=== PATIENT | male | born 1975 | race Caucasian/White ===

== ENCOUNTER 2019-10-07 13:22 | Emergency (ER) | payer SELFPAY ==
[~2019-10-07] VITALS: Ht 167.6 cm; Wt 65.8 kg
[2019-10-07 13:32] VITALS: BP 154/98
[2019-10-07] MEDS ORDERED: HYDROcodone/APAP 5/325 MG 1 TAB TAB PO ONE (14:05)
--- NOTE | 2019-10-07 14:12 | NUR ---
C/O LEFT THUMB NAIL PAIN S/P SMASHING SITE IN CAR DOOR X YESTERDAY. BRUISING NOTED UNDER PTS L THUMB NAIL. +CMS. PAIN /. VS STABLE. PT ALERT AND AWAKE, AMBULATORY WITH STEADY GAIT. MED HX: DENIES
--- NOTE | 2019-10-07 14:13 | NUR ---
[facility] PO ADMINISTERED. PT STATES HE HAS A RIDE HOME
--- NOTE | 2019-10-07 14:28 | NUR ---
[facility] in ED - 10/07/19 at 1445 by [email or web address] XRAY AT BEDSIDE
--- NOTE | 2019-10-07 14:33 | NUR ---
BETADINE AND 18 G NEEDLE AT BEDSIDE FOR PA
--- NOTE | 2019-10-07 14:40 | NUR ---
NADR, PT REPORTS MINIMAL PAIN RELIEF POST MEDICATION. INSTRUCTED PT THAT DR WILL BE IN FOR PROCEDURE FOR RELEASE PRESSURE FROM NAIL TO HELP WITH PAIN CONTROL
--- NOTE | 2019-10-07 14:45 | NUR ---
XRAY AT BEDSIDE
--- NOTE | 2019-10-07 15:03 | NUR ---
PA AT BEDSIDE FOR PROCEDURE
[2019-10-07 15:48] VITALS: BP 116/56
== END 2019-10-07 15:47 | disposition home or self-care (01) ==
LOC: MED 13:22
DX: S60.112A Contusion of left thumb with damage to nail, initial encounter (principal); W23.0XXA Caught, crushed, jammed, or pinched between moving objects, initial encounter; Y93.89 Activity, other specified; Y92.89 Other specified places as the place of occurrence of the external cause; Y99.8 Other external cause status
CPT/HCPCS: 11740; 73130; 99283; Q0092